=== PATIENT | female | born 1975 | race Caucasian/White ===

== ENCOUNTER → 2020-01-25 14:27 | Outpatient (BNVA) | payer OTHER, SELFPAY | PROVIDERS: Family Provider Family Medicine; PCP Family Medicine; Visit Provider Internal Medicine | DX: Z11.59 Encounter for screening for other viral diseases (principal) | CPT/HCPCS: 87635 ==

== ENCOUNTER 2020-06-25 11:21 | Outpatient (CLI) | payer BC, OTHER, SELFPAY ==
[2020-06-25 12:05] LABS: Basophils # 0.1 10^3/uL (0.0-0.1); Basophils % 0.5 %; Eosinophils # 0.4 10^3/uL (0.0-0.8); Hematocrit 43.7 % (37.0-47.0); Hemoglobin 14.4 g/dL (11.5-15.3); Lymphocytes # 4.1 10^3/uL (0.8-4.8); Lymphocytes % 43.4 %; Mean Corpuscular Hemoglobin 32.3 pg (28.0-34.0); Mean Platelet Volume 10.9 fL (7.4-10.4); Monocytes # 0.7 10^3/uL (0.2-0.9); Monocytes % 7.2 %; Neutrophils # 4.24 10^3/uL (1.8-7.7); Neutrophils % 44.7 %; Nucleated Red Blood Cells % 0 %; Platelet Count 265 10^3/cmm (130-400); Red Blood Count 4.46 10^6/uL (4.1-5.3); Red Cell Distribution Width 13.2 % (12.1-15.1); White Blood Count 9.5 10^3/uL (4.0-10.0)
[2020-06-25 12:32] LABS: Alanine Aminotransferase 13 U/L (0-33); Albumin Level 4.5 g/dL (3.5-5.2); Alkaline Phosphatase 73 IU/L (35-105); Anion Gap 13.9 (5-19); Aspartate Amino Transferase 18 U/L (0-32); Blood Urea Nitrogen 6 mg/dL (6-20); Calcium 9.3 mg/dL (8.5-10.5); Carbon Dioxide 25 mmol/L (22-29); Chloride 103 mmol/L (98-107); Globulin 2.2 g/dL (1.3-4.6); Glomerular Filtration Rate 78.3 mL/min (90-130); Glucose 86 mg/dL (65-115); Lactate Dehydrogenase 175 U/L (135-214); Osmolality Calculated 283 mOsm/kg (285-295); Potassium 3.9 mmol/L (3.5-5.1); Sodium 138 mmol/L (136-145); Total Bilirubin 1.3 mg/dL (0.15-1.2); Total Protein 6.7 g/dL (6.6-8.7)
--- NOTE | 2020-06-29 11:37 | ONC FU_ITS ---
Patient Follow-Up Note Patient: Lizzeth Smalls Unit #: [id number]: 1975 Dicatated By: Tyson Morgan M.D.Date of Visit:Jun 25, 2020 Onc Med Follow-up/Prog Note Chief Complaint: Melanoma. History of Present Illness: This is a 44 year-old woman with malignant melanoma of the right ear, stage IIB (T4a, N0, M0). She had presented with an enlarging mole on her right ear. The intial biopsy showed Kenn level V melanoma with Breslow depth 5.0 mm. She underwent wide excision with sentinel lymph node biopsy from the right side of the neck on 09/03/2009. There was no residual melanoma in the wide excision specimen and there was no involvement in the sentinel lymph node biopsy. She was given adjuvant therapy with alpha interferon 2B. She was able to complete the initial high dose induction phase of the treatment, but she developed severe toxicity during the lower dose, subcutaneous portion. The most significant side effect was severe myositis. Treatment at that point was discontinued. She was then followed on observation/expectant management. Her other medical illnesses have been limited to GERD, seasonal allergies, and degenerative disease of the spine with chronic back pain. She underwent a gastric sleeve procedure in December 2014. She has a history of smoking 1 pack of cigarettes daily since age 22. She is seen for a scheduled visit. She has been feeling good generally. She has good energy and activity tolerance. Appetite also is good. She has no fever, night sweats, or hot flashes. She has no shortness of breath, cough, or chest pain. She has no GI/ complaints other than occasional heartburn. She has had chronic back pain following previous back surgery. She has no other joint or bone pain. She does not complain of headache or dizziness. She has no focal neurologic symptoms. Medications: Flexeril 1 (10 mg) Tablet Oral t.i.d. PRN, Ibuprofen 600 mg (of 200 mg) Capsule Oral q 8 hours PRN, Percocet 1 - 2 Tablet (of 2.5-325 mg) Tablet Oral q 4 to 6 hours PRN Allergies: No Known Allergies. Vital Signs: Performed on Jun 25, 2020 12:47 Height - 67.00 in Weight - 164.8 lbs (HIGH) BSA - 1.86 sq.m BMI - 25.81 Temperature - 98.5 F Pulse - 83 /min Respiration - 16 /min BP - 127/65 mm(hg) O2 Sat - 98 % Pain - 0 Physical Examination: Constitutional - She looks good generally, Eyes - Sclerae nonicteric. Conjunctivae clear, ENMT - No lesions noted in the oral cavity, Hematologic/Lymphatic - No cervical, clavicular, or axillary adenopathy, Respiratory - Lungs are clear with good air movement bilaterally, Cardiovascular - Heart rhythm is regular. There is no murmur, gallop, or rub noted, Abdomen - Soft . Liver and spleen are not enlarged. There is no abdominal mass or ascites noted and there is no inguinal adenopathy, Extremities - No edema, Integumentary - There are no suspicious lesions noted, Neurologic - No focal neurologic deficits noted. Lab/Imaging: Test performed on Jun 25, 2020 11:38 LDH (Total) 175 U/L Sodium 138 mmol/L Potassium 3.9 mmol/L Chloride 103 mmol/L CO2 25 mmol/L Anion Gap 13.9 BUN 6 mg/dL Creatinine 0.8 mg/dL Cr Clearance (Est) 107.00 mL/min eGFR 78.3 mL/min Glucose 86 mg/dL Osmolality - Calculated 283 mOsm/kg Calcium 9.3 mg/dL Protein, Total 6.7 g/dL Albumin 4.5 g/dL Globulin 2.2 g/dL Bilirubin, Total 1.3 mg/dL ALT (SGPT) 13 U/L AST (SGOT) 18 U/L Alkaline Phosphatase 73 IU/L WBC 9.5 10 3/uL RBC 4.46 10 6/uL HGB 14.4 g/dL HCT 43.7 % MCV 98.0 fL MCH 32.3 pg MCHC 33.0 g/dL RDW 13.2 % Platelet Count 265 10 3/cmm MPV 10.9 fL Neutrophils 4.24 10 3/uL Lymphocytes 4.1 10 3/uL Monocytes 0.7 10 3/uL Eosinophils 0.4 10 3/uL Basophils 0.1 10 3/uL Neutrophil % 44.7 % Lymphocyte % 43.4 % Monocyte % 7.2 % Eosinophil % 4.0 % Basophils % 0.5 % NRBC % 0 % Impression: 1. Patient with malignant melanoma of the right ear, stage IIB. 2. She underwent wide excision/sentinel lymph node biopsy in September 2009. 3. She received an abbreviated course of adjuvant interferon It was stopped due to multiple toxicities. She has since then been followed on observation. 4. She had a gastric sleeve procedure in December 2014. Her other medical illnesses include: 5. GERD. 6. Seasonal allergies. 7. Degenerative arthritis/degenerative disease of the spine. 8. She has nicotine dependence (cigarettes). During followup she has been doing well clinically with no evidence of recurrence of the melanoma. She is now more than 10 years out from completion of treatment. Plan: She remains on observation/expectant management for the melanoma. She will continue regular follow-up with Dr. Sauceda. I will see her again only as needed. Signed By: Tyson Morgan M.D. <<Signature on File>>
== END 2020-06-25 11:22 | disposition home or self-care (01) ==
LOC: ONCMED 11:27
PROVIDERS: Family Provider Family Medicine; PCP Family Medicine; Visit Provider Internal Medicine Medical Oncology
DX: C43.21 Malignant melanoma of right ear and external auricular canal (principal)
CPT/HCPCS: 36415; 80053; 83615; 85025; G0463

== ENCOUNTER 2021-02-21 10:03 | Outpatient (CLI) | payer OTHER, SELFPAY ==
--- NOTE | 2021-02-21 10:38 | XR_ITS ---
WS: [id number] Chest 2 views, 02/21/2021 Clinical Data: RIB PAIN, RIGHT SIDED Comparison: PA and lateral chest, 08/01/2012. Findings: No nodules, masses or effusions are seen. The heart is normal. The pulmonary vascularity is not increased. No pneumonia or pneumothorax is seen. There are scattered small granulomas throughout the lungs. XR/XR chest 2V* [id number] Impression: Negative chest.
== END 2021-02-21 10:04 | disposition home or self-care (01) ==
PROVIDERS: PCP Family Medicine; Visit Provider Clinical Nurse Specialist Adult Health
DX: R07.81 Pleurodynia (principal)
CPT/HCPCS: 71046

== ENCOUNTER → 2021-11-13 09:24 | Outpatient (BNVA) | payer OTHER, SELFPAY | PROVIDERS: PCP Family Medicine; Visit Provider Family Medicine | DX: F32.A Depression, unspecified (principal); N39.0 Urinary tract infection, site not specified | CPT/HCPCS: 81000; 87077; 87086; 87184 ==

== ENCOUNTER → 2022-10-12 14:23 | Outpatient (BNVA) | payer OTHER, SELFPAY | PROVIDERS: PCP Family Medicine; Visit Provider Family Medicine | DX: R55 Syncope and collapse (principal); N39.41 Urge incontinence | CPT/HCPCS: 81003 ==

== ENCOUNTER → 2022-10-16 08:12 | Outpatient (BNVA) | payer OTHER, SELFPAY | PROVIDERS: PCP Family Medicine; Visit Provider Family Medicine | DX: R55 Syncope and collapse (principal); N39.41 Urge incontinence; Z13.6 Encounter for screening for cardiovascular disorders | CPT/HCPCS: 80053; 80061; 82607; 83036; 83735; 84443; 85025 ==

== ENCOUNTER → 2022-10-22 09:12 | Outpatient (BNVA) | payer OTHER, SELFPAY | PROVIDERS: PCP Family Medicine; Visit Provider Family Medicine | DX: E87.1 Hypo-osmolality and hyponatremia (principal); R55 Syncope and collapse | CPT/HCPCS: 80048 ==

== ENCOUNTER → 2022-12-07 11:28 | Outpatient (BNVA) | payer OTHER, SELFPAY | PROVIDERS: PCP Family Medicine; Visit Provider Family Medicine | DX: E53.8 Deficiency of other specified B group vitamins (principal); E87.1 Hypo-osmolality and hyponatremia; N39.41 Urge incontinence; R55 Syncope and collapse | CPT/HCPCS: 80053; 82607 ==

== ENCOUNTER 2023-06-05 03:03 | Emergency (ER) | payer OTHER, SELFPAY ==
[2023-06-05 03:04] VITALS: BP 116/71; PULSE 83; RESP 20; TEMP 36.6; O2SAT 98; BMI 247.4
--- NOTE | 2023-06-05 03:04 | ECG_ITS ---
[facility] Test Date: 2023-06-05 Pat Name: Lizzeth Smalls Department: Room: Gender: Female Medicine Teacher: : 1975 Requested By: Joe Garza Order Number: [id number] Greer MD: Kavita Purcell M.D. Measurements Intervals [place] Rate: 85 P: 56 [place]: 136 QRS: 59 QRSD: 86 T: 53 QT: 380 QTc: 453 Interpretive Statements SINUS RHYTHM No previous ECG available for comparison Electronically Signed On 06-06-2023 21:31:57 MACHINE STEAK TENDERIZER by Kavita Purcell M.D. [id number] f
--- NOTE | 2023-06-05 03:20 | ED_ITS ---
HPI - Seizure 2 General: Chief Complaint: Seizure Stated Complaint: SEIZURE Time Seen by Provider: 06/05/23 03:19 History of Present Illness: HPI Narrative: 47 year old female with no prior history of seizure disorder. She woke her in bed this morning with a stiff arched back, extended neck, snoring respirations, and unresponsiveness otherwise. Her notes that her eyes were rolled back in her head. She did not respond to verbal or physical stimulus. Her extremities did not shake he says, but were rigid. No prior episodes such as this. She had had three drinks of alcohol the night before, which is not unusual, but not a daily thing for her. No recent illness otherwise. No fever, no vomiting. She does not remember the event. She did not bite her tongue. states episode lasted around 5 minutes. Associated symptoms: Reports confusion (afterward resolved now); Deny chest pain, chills or fever(s) Review of Systems 2 Const: Denies: fever(s), chills or body aches Eyes: Denies: change in vision Card: Denies: chest pain or palpitations Resp: Denies: dyspnea, productive cough, non-productive cough or wheezing GI: Denies: abdominal pain, nausea, vomiting, diarrhea or hematochezia : Denies: difficulty voiding Skin/Breast: Denies: rash Neuro: Reports: headache(s), confusion (afterward resolved now) and seizure- like activity; Denies: numbness in extremities, weakness in extremities or dizziness Physical Exam 2 Const: COMMON NORMALS: no acute distress, patient oriented x3 and alert G ENERAL APPEARANCE: cooperative; not ill appearing and not frail appearing HENMT: COMMON NORMALS: normocephalic, atraumatic and Normal external nose present HEAD & SCALP: normocephalic and atraumatic FACE & SINUS: normal facial exam and face symmetric NOSE: Normal external nose present Eye: COMMON NORMALS: Equal, round and reactive pupils present and EOMs intact bilaterally PUPIL: Yes Equal, round and reactive pupils present Neck/C-Spine: GENERAL: Yes trachea midline Chest: CHEST: Yes Symmetrical chest wall rise Resp: COMMON NORMALS: normal respiratory effort, No retractions, No use of accessory muscles and clear to auscultation bilaterally AUSCULTATION: clear to auscultation bilaterally Cardio: COMMON NORMALS: regular rate and regular rhythm RATE: regular rate RHYTHM: regular rhythm GI: COMMON NORMALS: Normal to inspection, nondistended, normoactive bowel sounds present Extremity: COMMON NORMALS: no pedal edema Neuro: ADAMA COMA SCALE: document GCS findings Adama coma scale eye opening: Spontaneous [place] coma scale verbal response: Orientated [place] coma scale motor response: Obey commands [place] coma scale total score: 15 COMMON NORMALS: patient oriented x3 SENSORIUM/ORIENTATION: Yes alert CRANIAL NERVES: Yes CN normal except as noted COORDINATION/BALANCE: [id number] test normal and [id number] test normal SPEECH: speech normal GAIT: Yes Normal gait present (tested later) SENSORY EXAM: Yes extremities (intact) MOTOR EXAM: Pronator motor function not present and Motor fasciculations not present COORDINATION: [id number] test normal and [id number] test normal Psych: COMMON NORMALS: speech normal SPEECH: Yes normal speech Skin: COMMON NORMALS: no rashes or lesions noted GENERAL SKIN EXAM: no rashes or lesions noted Course 2 Vital Signs: Vital signs: Vital Signs Temperature 97.8 F 06/05/23 03:04 Pulse Rate 94 06/05/23 06:11 Respiratory Rate 16 06/05/23 06:11 Blood Pressure 116/71 06/05/23 03:22 Pulse Oximetry 98 06/05/23 06:11 Oxygen Delivery Me thod Room Air 06/05/23 03:22 MDM - Seizure MDM Narrative Medical decision making narrative: What about cell count is 13.8. Alcohol level is only 27. Laboratory testing is otherwise not remarkable. Head CT shows a calcified area in the right posterior temporal lobe, likely a calcified AVM. No evidence of hemorrhage or swelling. EKG and telemetry do not reveal a cause. The patient is back to baseline. She was loaded with depacon, but this was more for her post seizure headache than for its anti convulsive properties. It helped with the headache some, but the patient does still have a mild headache. She wishes to go home. She'll be referred to neurology as an outpatient. Feel like we require further testing. Because of the nature of her episode, which does sound suspicious for seizure, she'll be started on Keppra for now. 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 MRI would be helpful for further characterization. Laboratory Results WBC 13.78 10^3/uL (3.29-11.43) H 06/05/23 03:10 RBC 4.40 10^6/uL (3.85-5.65) 06/05/23 03:10 Hgb 13.90 g/dL (11.27-16.99) 06/05/23 03:10 Hct 41.2 % (36-47) 06/05/23 03:10 MCV 93.6 fl (85-98) 06/05/23 03:10 MCH 31.6 pg (27-33) 06/05/23 03:10 MCHC 33.7 g/dL (30-55) 06/05/23 03:10 RDW 13.4 % (12.1-15.1) 06/05/23 03:10 Plt Count 232 10^3/cmm (157-399) 06/05/23 03:10 MPV 11.3 fL (7.4-10.4) H 06/05/23 03:10 Neut % (Auto) 73.4 % 06/05/23 03:10 Lymph % (Auto) 18.4 % 06/05/23 03:10 [place] % (Auto) 6.0 % 06/05/23 03:10 Eos % (Auto) 1.4 % 06/05/23 03:10 Baso % (Auto) 0.5 % 06/05/23 03:10 Neut # (Auto) 10.11 10^3/uL (1.8-7.7) H 06/05/23 03:10 Lymph # (Auto) 2.5 10^3/uL (0.8-4.8) 06/05/23 03:10 [place] # (Auto) 0.8 10^3/uL (0.2-0.9) 06/05/23 03:10 Eos # (Auto) 0.2 10^3/uL (0.0-0.8) 06/05/23 03:10 Baso # (Auto) 0.1 10^3/uL (0.0-0.1) 06/05/23 03:10 Nucleated RBC % (auto) 0 % 06/05/23 03:10 Nucleated RBCs # 0.0 /100WBC 06/05/23 03:10 Sodium 134 mmol/L (136-145) L 06/05/23 03:10 Potassium 3.7 mmol/L (3.5-5.1) 06/05/23 03:10 Chloride 98 mmol/L (98-107) 06/05/23 03:10 Carbon Dioxide 20 mmol/L (22-29) L 06/05/23 03:10 Anion Gap 19.7 (5-19) H 06/05/23 03:10 BUN 7 mg/dL (6-20) 06/05/23 03:10 Creatinine 0.9 mg/dL (0.5-0.9) 06/05/23 03:10 GFR Calculation 67.4 mL/min (90-130) L 06/05/23 03:10 Glucose 106 mg/dL (65-115) 06/05/23 03:10 Calculated Osmolality 276 mOsm/kg (285-295) L 06/05/23 03:10 Calcium 9.1 mg/dL (8.5-10.5) 06/05/23 03:10 Phosphorus 2.7 mg/dL (2.5-4.5) 06/05/23 03:10 Magnesium 1.8 mg/dL (1.7-2.3) 06/05/23 03:10 Total Bilirubin 0.5 mg/dL (0.15-1.2) 06/05/23 03:10 AST 24 U/L (0-32) 06/05/23 03:10 ALT 10 U/L (0-33) 06/05/23 03:10 Alkaline Phosphatase 82 U/L (35-105) 06/05/23 03:10 C-Reactive Protein 3.0 mg/L (0.0-4.9) 06/05/23 03:10 Total Protein 6.7 g/dL (6.6-8.7) 06/05/23 03:10 Albumin 4.1 g/dL (3.5-5.2) 06/05/23 03:10 Globulin 2.6 g/dL (1.3-4.6) 06/05/23 03:10 HCG, Qual Negative (Negative) 06/05/23 03:10 Urine Color Yellow (Yellow) 06/05/23 03:45 Urine Appearance Clear (CLEAR) 06/05/23 03:45 Urine pH 5 (5-7) 06/05/23 03:45 Ur Specific [place] 1.030 (1.005-1.030) 06/05/23 03:45 Urine Protein Trace (Negative) 06/05/23 03:45 Urine Glucose (UA) Norm (Normal) 06/05/23 03:45 Urine Ketones 1+ (Negative) H 06/05/23 03:45 Urine Blood Neg (Negative) 06/05/23 03:45 Urine Nitrate Negative (Negative) 06/05/23 03:45 Urine Bilirubin Neg (Negative) 06/05/23 03:45 Urine Urobilinogen 1 mg/dL (Negative) H 06/05/23 03:45 Ur Leukocyte Esterase Negative (Negative) 06/05/23 03:45 Urine RBC None /hpf (0-2) 06/05/23 03:45 Urine WBC None /hpf (0-5) 06/05/23 03:45 Ur Squamous Epith Cells 0-4 /hpf (0-5) H 06/05/23 03:45 Amorphous Sediment Not Reportable 06/05/23 03:45 Urine Bacteria Trace /hpf (NONE) 06/05/23 03:45 Urine Opiates Screen Negative ng/mL (Negative) 06/05/23 03:45 Ur Barbiturates Screen Negative ng/mL (Negative) 06/05/23 03:45 Ur Phencyclidine Scrn Negative ng/mL (Negative) 06/05/23 03:45 Ur Amphetamines Screen Negative ng/mL (Negative) 06/05/23 03:45 U Benzodiazepines Scrn Negative ng/mL (Negative) 06/05/23 03:45 Urine Cocaine Screen Negative ng/mL (Negative) 06/05/23 03:45 U Marijuana (THC) Screen Negative ng/mL (Negative) 06/05/23 03:45 Ethyl Alcohol 27 mg/dL (0-10) H 06/05/23 03:10 All radiology interpretation(s) finalized by discharge Discharge Plan Discharge Patient Disposition: Home Clinical Impression: New onset seizure Condition: Stable Prescriptions: New Keppra 500 mg tablet 250 mg PO BID Qty: 60 0RF No Action silver sulfadiazine [Silvadene] 1 % cream 1 applic topical BID Qty: 50 2RF mecobalamin (vitamin B12) 5,000 mcg tablet,chewable 5,000 mcg PO BID Qty: 60 11RF escitalopram oxalate 10 mg tablet See Rx Instructions .ROUTE .COMPLEX Qty: 30 0RF Dose Instruction: Take 1 tablet by mouth once daily Rx Instructions: Take 1 tablet by mouth once daily tolterodine 1 mg tablet 1 mg PO Q12H Qty: 60 0RF Discharge Orders: Discharge ED (Routine); Ordered 06/05/23 Ordered By: Joe Andino Referrals: Senthil Sauceda MD [Primary Care Provider] - 1-3 days Patient Instructions: New-Onset Seizure in Adults (ED), Opioid Safety, Pain Management Activity Restrictions/Additional Instructions: Return for repeated episodes of seizure, worsening mental status, fever, other concerning symptoms. Avoid alcohol. Do not drive or operate machinery until cleared by your neurologist. Follow-up with your doctor next week. Case management will obtain you and neurology appointment, and someone will contact you next week with an appointment time. Medications as directed. Coding Level of Care Code ED Implementation Services Analyst for [employer]
--- NOTE | 2023-06-05 03:20 | CTR_ITS ---
PROCEDURE INFORMATION: Exam: CT Head Without Contrast Exam date and time: 06/05/2023 3:33 AM Age: 47 years old Clinical indication: Patient HX: EMS arrival for seizure activity. ; Additional info: Willy TECHNIQUE: Imaging protocol: Computed tomography of the head without contrast. Radiation optimization: All CT scans at this facility use at least one of these dose optimization techniques: automated exposure control; mA and/or kV adjustment per patient size (includes targeted exams where dose is matched to clinical indication); or iterative reconstruction. REPORTING DATA: Count of CT and Cardiac NM exams in prior 12 months: This patient has received 0 known CTs and 0 known cardiac nuclear medicine studies in the 12 months prior to the current study. COMPARISON: No relevant prior studies available. RADIATION DOSE METRICS: Total DLP (mGy-cm): 1075.45 FINDINGS: Brain: There is a partially calcified right posterior temporal lobe vascular malformation measuring 2 x 1.8 x 1.3 cm. There does not appear to be acute hemorrhage. There is no mass effect, midline shift, or downward herniation. Cerebral ventricles: No ventriculomegaly. Paranasal sinuses: Visualized sinuses are unremarkable. No fluid levels. Mastoid air cells: Visualized mastoid air cells are well aerated. Bones/joints: Unremarkable. No acute fracture. Soft tissues: Unremarkable. 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 MRI would be helpful for further characterization.
[2023-06-05 03:22] VITALS: BP 116/71; PULSE 78; RESP 16; O2SAT 100
[2023-06-05] MEDS: sodium chloride 0.9% 1,000 ML 999 ML IV (03:41)
[2023-06-05 03:43] LABS: Basophils # 0.1 10^3/uL (0.0-0.1); Basophils % 0.5 %; Eosinophils # 0.2 10^3/uL (0.0-0.8); Eosinophils % 1.4 %; Hematocrit 41.2 % (36-47); Lymphocytes # 2.5 10^3/uL (0.8-4.8); Lymphocytes % 18.4 %; Mean Corpuscular HGB Conc 33.7 g/dL (30-55); Mean Corpuscular Hemoglobin 31.6 pg (27-33); Mean Corpuscular Volume 93.6 fl (85-98); Mean Platelet Volume 11.3 fL (7.4-10.4); Monocytes # 0.8 10^3/uL (0.2-0.9); Neutrophils # 10.11 10^3/uL (1.8-7.7); Neutrophils % 73.4 %; Nucleated Red Blood Cells % 0 %; Platelet Count 232 10^3/cmm (157-399); Red Cell Distribution Width 13.4 % (12.1-15.1); White Blood Count 13.78 10^3/uL (3.29-11.43)
[2023-06-05 04:04] LABS: HCG, Serum Qual Negative (Negative)
[2023-06-05 04:06] LABS: Alanine Aminotransferase 10 U/L (0-33); Albumin Level 4.1 g/dL (3.5-5.2); Alcohol Level 27 mg/dL (0-10); Alkaline Phosphatase 82 U/L (35-105); Anion Gap 19.7 (5-19); Aspartate Amino Transferase 24 U/L (0-32); Blood Urea Nitrogen 7 mg/dL (6-20); Calcium 9.1 mg/dL (8.5-10.5); Carbon Dioxide 20 mmol/L (22-29); Chloride 98 mmol/L (98-107); Globulin 2.6 g/dL (1.3-4.6); Glomerular Filtration Rate 67.4 mL/min (90-130); Glucose 106 mg/dL (65-115); Magnesium 1.8 mg/dL (1.7-2.3); Osmolality Calculated 276 mOsm/kg (285-295); Phosphorus 2.7 mg/dL (2.5-4.5); Potassium 3.7 mmol/L (3.5-5.1); Sodium 134 mmol/L (136-145); Total Bilirubin 0.5 mg/dL (0.15-1.2); Total Protein 6.7 g/dL (6.6-8.7)
[2023-06-05 04:17] LABS: Amphetamines Screen Urine Negative (Negative); Barbiturates Screen Urine Negative (Negative); Benzodiazepines Screen Urine Negative (Negative); Cocaine Screen Urine Negative (Negative); Opiate Screen Urine Negative (Negative); PCP Screen Urine Negative (Negative); THC Screen Urine Negative (Negative)
[2023-06-05 04:26] LABS: Add Urine Culture? No; Add Urine Microscopic? YES; Bacteria Urine TRACE /hpf; Bilirubin Urine Neg (Negative); Blood Urine Neg (Negative); Glucose Urine UA Norm (Normal); Ketones Urine 1+ (Negative); Leukocyte Esterase Urine Negative (Negative); Nitrate Urine Negative (Negative); Protein Urine Trace (Negative); Squamous Epithelial Cell Urine 0-4 /hpf (0-5); Urine Appearance Clear (CLEAR); Urine Color Yellow (Yellow); Urobilinogen Urine 1 mg/dL (Negative); pH Urine 5 (5-7)
[2023-06-05] MEDS: valproic acid inj 500 MG in sodium chloride 0.9% 50 ML 55 MG IV (04:56)
[2023-06-05 06:11] VITALS: PULSE 94; RESP 16; O2SAT 98
--- NOTE | 2023-06-07 08:31 | DCPLANNER ---
Referral was sent to neurology on 06/07/23 at 0833. Clinic to contact patient.
== END 2023-06-05 05:50 | disposition home or self-care (01) ==
PROVIDERS: Emergency Provider Emergency Medicine; PCP Family Medicine
DX: G40.89 Other seizures (principal)
CPT/HCPCS: 70450; 80053; 80306; 80307; 81001; 83735; 84100; 84703; 85025; 86140; 93005; 96361; 96374; 99285; J3490; J7030

== ENCOUNTER → 2023-06-07 15:46 | Outpatient (BNVA) | payer OTHER, SELFPAY | PROVIDERS: PCP Family Medicine; Visit Provider Family Medicine | DX: R56.9 Unspecified convulsions (principal) | CPT/HCPCS: 80048; 82607; 84443; 85025 ==

== ENCOUNTER 2023-06-15 09:55 | Outpatient (CLI) | payer OTHER, SELFPAY ==
--- NOTE | 2023-06-15 10:15 | MR_ITS ---
WS: [id number] MRI BRAIN WITH AND WITHOUT CONTRAST HISTORY: seizure COMPARISON: MRI brain 04/22/2010. Head CT 06/05/2023 TECHNIQUE: Multiplanar imaging performed through the brain with MultiHance 16 ml's IV. No acute infarcts. No prior infarct. No volume loss or atrophy. Mixed signal mass centered in the posterior RIGHT temporal lobe. Masses of variable signal on the T2 sequence with locules. Increased signal on the T1 sequence and a complete hemosiderin ring from prior hemorrhage. Mass is centered in the periphery in the cortex of the temporal lobe measuring 2.2 x 2.0 x 2.1 cm. There is a small amount of postcontrast enhancement. There is not a lot of surrounding kianna ma or midline shift. No additional signal abnormality. Ventricles and extra-axial spaces are normal. Clivus and pituitary gland are normal. Visualized posterior fossa and brainstem are also normal. No additional enhancing masses within the brain. Dural venous sinuses are normal. Paranasal sinuses: Well aerated with no significant disease. Mastoid air cells: Normal. Calvarium and scalp: Normal. IMPRESSION: 1. Mass with variable signal, mild enhancement and hemosiderin rim centered in the RIGHT temporal lo be measures 2.2 x 2.0 x 2.1 cm. This is most consistent with a cavernous malformation. New since the prior MRI of 2009. Corresponds to the finding recently identified by noncontrast head CT. Intralesion al hemorrhage and growth are possibilities. Consider evaluation by neurosurgery due to the size. 2. No acute infarcts. No additional areas of abnormal enhancement.
[2023-06-15] MEDS: gadobenate dimeglumine 20 mL vial IV (13:48)
== END 2023-06-15 09:56 | disposition home or self-care (01) ==
PROVIDERS: PCP Family Medicine; Visit Provider Family Medicine
DX: R56.9 Unspecified convulsions (principal); G93.9 Disorder of brain, unspecified
CPT/HCPCS: 70553; A9577

== ENCOUNTER → 2023-12-06 16:00 | Outpatient (BNVA) | payer BC, OTHER, SELFPAY | PROVIDERS: PCP Family Medicine; Visit Provider Psychiatry & Neurology Neurology | DX: R56.9 Unspecified convulsions (principal); R55 Syncope and collapse | CPT/HCPCS: 36415; 80053; 80164; 85025 ==

== ENCOUNTER → 2024-03-08 08:42 | Outpatient (BNVA) | payer BC, OTHER, SELFPAY | PROVIDERS: PCP Family Medicine; Visit Provider Psychiatry & Neurology Neurology | DX: R56.9 Unspecified convulsions (principal) | CPT/HCPCS: 36415; 84295 ==

== ENCOUNTER 2024-03-15 21:59 | Emergency (ER) | payer BC, OTHER, SELFPAY ==
[2024-03-15 22:00] VITALS: BP 147/64; PULSE 86; RESP 16; TEMP 36.7; O2SAT 100; BMI 26.3
--- NOTE | 2024-03-15 22:36 | ECG_ITS ---
[facility] Test Date: 2024-03-15 Pat Name: Lizzeth Smalls Department: Room: Gender: Female Adjustment Clerk: : 1975 Requested By: Sari Kennedy Order Number: [id number] Greer MD: BRIANNE BARBER Measurements Intervals [place] Rate: 70 P: 62 [place]: 136 QRS: 55 QRSD: 80 T: 47 QT: 409 QTc: 443 Interpretive Statements SINUS RHYTHM POSSIBLE LEFT ATRIAL ENLARGEMENT [-0.1mV P-WAVE IN V1/V2] LOW QRS VOLTAGE IN PRECORDIAL LEADS [QRS DEFLECTION < 1.0 mV IN CHEST LEADS] Compared to ECG 06/05/2023 03:04:56 Low QRS voltage now present Electronically Signed On 03-16-2024 11:57:17 CDT by BRIANNE BARBER [id number]
[2024-03-15] MEDS: sodium chloride 0.9% 1,000 ML 999 ML IV (22:40)
[2024-03-15 22:49] VITALS: PULSE 89; RESP 16; O2SAT 99
--- NOTE | 2024-03-15 22:49 | W.ED.GENADLT ---
HPI - General Adult General: Chief complaint: General Medical Stated complaint: believes just had seizure Time Seen by Provider: 03/15/24 22:18 Source: patient and family Mode of arrival: wheelchair Limitations: no limitations History of Present Illness: Patient is a nice 48-year-old female presents to ED today for medical evaluation. Patient states prior to arrival she was out playing gambling machines and drinking alcohol. Patient states she had two whiskey Davidson/diet Dr. Pepper drinks as well as a vagus bomb shot. She states she began feeling nauseous so stood up and was walking to the bathroom when she felt like she was going to go down . Significant other in the room was there and helped lower her to the ground. No fall/injuries. He states she did not lose consciousness. No seizure-like activity. 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 Had surgery on this back in July and has been doing well since. No seizures since surgery. States she just had a MRI last month and everything was clear . states he witnessed her one seizure and tonight's episode was nothing like that . Upon arrival patient appears in no acute distress other than she states she feels nervous and is somewhat tremulous. Her vital signs are stable. She has no physical complaints at this time. Patient states she never had any chest pain, shortness of breath, or difficulty breathing. States she never felt lightheaded or dizzy, just nauseous. She did end up vomiting one time while she was seated on the floor. Onset (ago): hour(s) Severity: mild Relieving factors: none Exacerbating factors: none Associated symptoms: Reports no associated symptoms, nausea and vomiting (x 1); Deny chest pain, confusion, dyspnea, headache(s), malaise, rash, palpitations or syncope Treatments prior to arrival: none Related Data Previous Rx's Medication Instructions Recorded mecobalamin (vitamin B12) 5,000 5,000 mcg PO BID #60 tabs 11/12/22 mcg chewable tablet escitalopram oxalate 10 mg tablet See Rx Instructions .Route 01/03/24 .COMPLEX #30 tabs divalproex 500 mg tablet,extended 750 mg (1.5 x 500 mg) PO DAILY #45 02/15/24 release 24 hr tabs Allergies Allergy/AdvReac Type Severity Reaction Status Date / Time No Known Allergies Allergy Verified 03/07/24 16:49 Review of Systems Const: Denies: fever(s), chills, body aches, fatigue or malaise Eyes: Denies: change in vision, blurry vision, photophobia, floaters or seeing flashes Card: Denies: chest pain, palpitations, irregular heart rhythm, lightheadedness or syncope Resp: Denies: dyspnea GI: Reports: nausea and vomiting (x 1); Denies: abdominal pain, hematemesis or change in bowel habits : Denies: flank pain or dysuria Musc: Denies: neck pain, back pain, extremity pain, extremity swelling, joint pain or joint swelling Skin/Breast: Denies: rash Neuro: Denies: headache(s), numbness in extremities, weakness in extremities, sensory changes, dizziness, vertigo, confusion, Slurred speech present or seizure-like activity PFSH ED PFSH: Social History Smoking and tobacco/nicotine status: never used tobacco/nicotine Physical Exam Const: COMMON NORMALS: no acute distress, average body habitus, patient oriented x3, no limitations, healthy appearing, alert and well nourished HENMT: COMMON NORMALS: normocephalic and atraumatic HEAD & SCALP: normocephalic and atraumatic Neck/C-Spine: GENERAL: Yes normal visual inspection Chest: COMMONS NORMALS: normal inspection of the chest Resp: COMMON NORMALS: normal respiratory effort Cardio: COMMON NORMALS: regular rate and regular rhythm RATE: regular rate RHYTHM: regular rhythm Extremity: GENERAL: Yes normal exam except as noted Neuro: [place] COMA SCALE: document GCS findings [place] coma scale eye opening: Spontaneous [place] coma scale verbal response: Orientated [place] coma scale motor response: Obey commands [place] coma scale total score: 15 COMMON NORMALS: patient oriented x3, moves all extremities, no focal motor deficits, no sensory deficits noted and gait normal SENSORIUM/ORIENTATION: Yes alert Course Vital Signs: Vital signs: Vital Signs Temperature 98.0 F 03/15/24 22:00 Pulse Rate 89 03/15/24 22:49 Respiratory Rate 16 03/15/24 22:49 Blood Pressure 147/64 03/15/24 22:00 Pulse Oximetry 99 03/15/24 22:49 Oxygen Delivery Me thod Room Air 03/15/24 22:00 MDM - General Adult Medical Decision Making Patient clinically appears in no acute distress. Her vital signs are stable. She feels better upon arrival to the emergency department. Her blood work here overall is unremarkable. No seizure-like activity. History does not suggest epileptic event. Denies chest pain, shortness of breath, difficulty breathing. No lightheadedness or dizziness. Patient will be allowed discharge with recommendations to follow-up with her neurologist and/your primary care provider. Return to ED precautions given. Medical Records I reviewed the patient's medical records. Lab Data I reviewed the patient's lab results. 03/15/24 22:50 03/15/24 22:50 Laboratory Results WBC 12.13 10^3/uL (3.29-11.43) H 03/15/24 22:50 RBC 4.94 10^6/uL (3.85-5.65) 03/15/24 22:50 Hgb 14.90 g/dL (11.27-16.99) 03/15/24 22:50 Hct 44.6 % (36-47) 03/15/24 22:50 MCV 90.3 fl (85-98) 03/15/24 22:50 MCH 30.2 pg (27-33) 03/15/24 22:50 MCHC 33.4 g/dL (30-55) 03/15/24 22:50 RDW 15.4 % (12.1-15.1) H 03/15/24 22:50 Plt Count 238 10^3/cmm (157-399) 03/15/24 22:50 MPV 10.5 fL (7.4-10.4) H 03/15/24 22:50 Neut % (Auto) 68.7 % 03/15/24 22:50 Lymph % (Auto) 21.4 % 03/15/24 22:50 [place] % (Auto) 8.2 % 03/15/24 22:50 Eos % (Auto) 1.2 % 03/15/24 22:50 Baso % (Auto) 0.3 % 03/15/24 22:50 Neut # (Auto) 8.31 10^3/uL (1.8-7.7) H 03/15/24 22:50 Lymph # (Auto) 2.6 10^3/uL (0.8-4.8) 03/15/24 22:50 [place] # (Auto) 1.0 10^3/uL (0.2-0.9) H 03/15/24 22:50 Eos # (Auto) 0.2 10^3/uL (0.0-0.8) 03/15/24 22:50 Baso # (Auto) 0.0 10^3/uL (0.0-0.1) 03/15/24 22:50 Nucleated RBC % (auto) 0 % 03/15/24 22:50 Nucleated RBCs # 0.0 /100WBC 03/15/24 22:50 Sodium 135 mmol/L (136-145) L 03/15/24 22:50 Potassium 4.6 mmol/L (3.5-5.1) 03/15/24 22:50 Chloride 98 mmol/L (98-107) 03/15/24 22:50 Carbon Dioxide 23 mmol/L (22-29) 03/15/24 22:50 Anion Gap 18.6 (5-19) 03/15/24 22:50 BUN 9 mg/dL (6-20) 03/15/24 22:50 Creatinine 0.9 mg/dL (0.5-0.9) 03/15/24 22:50 GFR Calculation 67.1 mL/min (90-130) L 03/15/24 22:50 Glucose 102 mg/dL (65-115) 03/15/24 22:50 Calculated Osmolality 279 mOsm/kg (285-295) L 03/15/24 22:50 Calcium 9.2 mg/dL (8.5-10.5) 03/15/24 22:50 Total Bilirubin 0.7 mg/dL (0.15-1.2) 03/15/24 22:50 AST 17 U/L (0-32) 03/15/24 22:50 ALT 9 U/L (0-33) 03/15/24 22:50 Alkaline Phosphatase 88 U/L (35-105) 03/15/24 22:50 Total Protein 7.2 g/dL (6.6-8.7) 03/15/24 22:50 Albumin 4.5 g/dL (3.5-5.2) 03/15/24 22:50 Globulin 2.7 g/dL (1.3-4.6) 03/15/24 22:50 HCG, Qual Negative (Negative) 03/15/24 22:35 Urine Color Yellow (Yellow) 03/15/24 23:10 Urine Appearance Clear (CLEAR) 03/15/24 23:10 Urine pH 5.0 (5-7) 03/15/24 23:10 Ur Specific [place] 1.011 (1.005-1.030) 03/15/24 23:10 Urine Protein 1+ (Negative) A 03/15/24 23:10 Urine Glucose (UA) Negative (Normal) 03/15/24 23:10 Urine Ketones Negative (Negative) 03/15/24 23:10 Urine Blood Negative (Negative) 03/15/24 23:10 Urine Nitrate Negative (Negative) 03/15/24 23:10 Urine Bilirubin Negative (Negative) 03/15/24 23:10 Urine Urobilinogen 1.0 mg/dL (Negative) 03/15/24 23:10 Ur Leukocyte Esterase Negative (Negative) 03/15/24 23:10 Urine RBC 0-2 /hpf (0-2) 03/15/24 23:10 Urine WBC 0-5 /hpf (0-5) 03/15/24 23:10 Ur Squamous Epith Cells 6-10 /hpf (0-5) 03/15/24 23:10 Amorphous Sediment Not Reportable 03/15/24 23:10 Urine Bacteria Trace /hpf (NONE) 03/15/24 23:10 Hyaline Casts 4.95 /lpf 03/15/24 23:10 Urine Opiates Screen Negative ng/mL (Negative) 03/15/24 23:10 Ur Barbiturates Screen Negative ng/mL (Negative) 03/15/24 23:10 Ur Phencyclidine Scrn Negative ng/mL (Negative) 03/15/24 23:10 Ur Amphetamines Screen Negative ng/mL (Negative) 03/15/24 23:10 U Benzodiazepines Scrn Negative ng/mL (Negative) 03/15/24 23:10 Urine Cocaine Screen Negative ng/mL (Negative) 03/15/24 23:10 U Marijuana (THC) Screen Negative ng/mL (Negative) 03/15/24 23:10 Ethyl Alcohol 70 mg/dL (0-10) H 03/15/24 22:50 No radiology studies performed this visit Discharge Plan Discharge Patient Disposition: Home Clinical Impression: Pre-syncope Nausea with vomiting Qualifiers: Vomiting type: unspecified Qualified Code(s): R11.2 - Nausea with vomiting, unspecified Condition: Stable Prescriptions: No Action mecobalamin (vitamin B12) 5,000 mcg tablet,chewable 5,000 mcg PO BID Qty: 60 11RF escitalopram oxalate 10 mg tablet See Rx Instructions .ROUTE .COMPLEX Qty: 30 11RF Dose Instruction: Take 1 tablet by mouth once daily Rx Instructions: Take 1 tablet by mouth once daily divalproex 500 mg tablet extended release 24 hr 750 mg PO DAILY Qty: 45 3RF Rx Instructions: Take at bedtime Discharge Orders: Discharge ED (Routine); Ordered 03/15/24 Ordered By: Sari Kennedy Referrals: Senthil Sauceda MD [Primary Care Provider] - Coding Level of Care Code ED Discharge Coordinator for Ian mSith
[2024-03-15 22:59] LABS: Basophils % 0.3 %; Eosinophils # 0.2 10^3/uL (0.0-0.8); Eosinophils % 1.2 %; Hematocrit 44.6 % (36-47); Lymphocytes # 2.6 10^3/uL (0.8-4.8); Lymphocytes % 21.4 %; Mean Corpuscular HGB Conc 33.4 g/dL (30-55); Mean Corpuscular Hemoglobin 30.2 pg (27-33); Mean Corpuscular Volume 90.3 fl (85-98); Mean Platelet Volume 10.5 fL (7.4-10.4); Monocytes % 8.2 %; Neutrophils # 8.31 10^3/uL (1.8-7.7); Neutrophils % 68.7 %; Nucleated Red Blood Cells % 0 %; Platelet Count 238 10^3/cmm (157-399); Red Blood Count 4.94 10^6/uL (3.85-5.65); Red Cell Distribution Width 15.4 % (12.1-15.1); White Blood Count 12.13 10^3/uL (3.29-11.43)
[2024-03-15 23:13] LABS: Alanine Aminotransferase 9 U/L (0-33); Albumin Level 4.5 g/dL (3.5-5.2); Alcohol Level 70 mg/dL (0-10); Alkaline Phosphatase 88 U/L (35-105); Anion Gap 18.6 (5-19); Aspartate Amino Transferase 17 U/L (0-32); Blood Urea Nitrogen 9 mg/dL (6-20); Calcium 9.2 mg/dL (8.5-10.5); Carbon Dioxide 23 mmol/L (22-29); Chloride 98 mmol/L (98-107); Creatinine Clr Calc Pharmacy 82.2725; Globulin 2.7 g/dL (1.3-4.6); Glomerular Filtration Rate 67.1 mL/min (90-130); Glucose 102 mg/dL (65-115); Osmolality Calculated 279 mOsm/kg (285-295); Potassium 4.6 mmol/L (3.5-5.1); Sodium 135 mmol/L (136-145); Total Bilirubin 0.7 mg/dL (0.15-1.2); Total Protein 7.2 g/dL (6.6-8.7)
[2024-03-15 23:17] LABS: HCG, Serum Qual Negative (Negative)
[2024-03-15 23:22] LABS: Bilirubin Urine Negative (Negative); Blood Urine Negative (Negative); Glucose Urine UA Negative (Normal); Ketones Urine Negative (Negative); Leukocyte Esterase Urine Negative (Negative); Nitrate Urine Negative (Negative); Protein Urine 1+ (Negative); Specific Gravity, Urine 1.011 (1.005-1.030); Urine Appearance Clear (CLEAR); Urine Color Yellow (Yellow)
[2024-03-15 23:27] LABS: Add Urine Microscopic? YES; Bacteria Urine Trace /hpf; Hyaline Casts Urine 4.95 /lpf; RBC Urine 0-2 /hpf (0-2); WBC Urine 0-5 /hpf (0-5)
[2024-03-15 23:29] LABS: Amphetamines Screen Urine Negative (Negative); Barbiturates Screen Urine Negative (Negative); Benzodiazepines Screen Urine Negative (Negative); Cocaine Screen Urine Negative (Negative); Opiate Screen Urine Negative (Negative); PCP Screen Urine Negative (Negative); THC Screen Urine Negative (Negative)
[2024-03-15 23:50] VITALS: BP 115/90; PULSE 68; O2SAT 99
== END 2024-03-15 23:59 | disposition home or self-care (01) ==
PROVIDERS: Emergency Provider Physician Assistant; PCP Family Medicine
DX: R55 Syncope and collapse (principal); R11.2 Nausea with vomiting, unspecified
CPT/HCPCS: 36415; 80053; 80306; 80307; 81001; 84703; 85025; 93005; 99284; J7030

== ENCOUNTER 2025-01-15 08:38 | Outpatient (CLI) | payer BC, OTHER, SELFPAY ==
--- NOTE | 2025-01-15 08:45 | MR_ITS ---
WS: [id number] MRI BRAIN WITH AND WITHOUT CONTRAST HISTORY: f/u mass removed, history of melanoma. COMPARISON: None available. TECHNIQUE: Multiplanar imaging performed through the brain with MultiHance 14 ml's IV. No acute infarcts are seen. [place]-white matter differentiation is well preserved. Status post resection previously described RIGHT temporal lobe mass. Focal scar with surrounding gliosis in the lateral RIGHT temporal lobe. No additional signal abnormalities. No inferior displacement of the cerebellar tonsils. Small amount of susceptibility artifact at the surgical site RIGHT temporal lobe. Ventricles and extra-axial spaces are normal. Clivus and pituitary gland are normal. Visualized posterior fossa and brainstem are also normal. Postcontrast images are negative for masses or vascular malformations. Dural venous sinuses are normal. Paranasal sinuses: Well aerated with no significant disease. Mastoid air cells: Normal. Calvarium and scalp: Surgical site posterior RIGHT temporal bone. Otherwise no destructive bone lesions. MR/MR head wo/w con [id number] IMPRESSION: 1. Status post resection of previously described RIGHT temporal lesion. No rec urrent mass or enhancement. 2. No new masses or metastatic sites. 3. No diffusion abnormalities. 4. No significant atrophy or volume loss.
[2025-01-15] MEDS: gadobenate dimeglumine 20 mL vial 14 ML IV (09:49)
== END 2025-01-15 08:39 | disposition home or self-care (01) ==
LOC: RAD 08:40
PROVIDERS: PCP Family Medicine; Visit Provider Family Medicine
DX: R51.9 Headache, unspecified (principal); Z85.820 Personal history of malignant melanoma of skin
CPT/HCPCS: 70553